=== PATIENT | female | born 1995 | race Caucasian/White ===

== ENCOUNTER 2020-01-07 11:09 | Emergency (ER) | payer OTHER ==
[2020-01-07 11:19] VITALS: BP 112/71; PULSE 101; TEMP 98.2; BMI 21.9
--- NOTE | 2020-01-07 12:10 | PDOC ---
History of Present Illness - General Chief Complaint: Respiratory Stated Complaint: Cold Symptoms Time Seen by Provider: 01/07/20 11:32 History Source: Patient - History of Present Illness Timing/Duration: reports: other Past History - Past Medical History Allergies/Adverse Reactions: Allergies Allergy/AdvReac Type Severity Reaction Status Date / Time No Known Allergies Allergy Verified 01/07/20 11:19 Home Medications: Ambulatory Orders NK [No Known Home Medication] 01/07/20 COPD: No - Psycho Social/Smoking Cessation Hx Smoking History: Never smoked Have you smoked in the past 12 months: No Hx Alcohol Use: No Drug/Substance Use Hx: No Substance Use Type: None Review of Systems - Review of Systems Constitutional: Yes: Fever HEENTM: No: Ear Pain, Throat Pain Respiratory: Yes: Cough. No: Shortness of Breath *Physical Exam - Vital Signs Last Vital Signs Temp Pulse Resp BP Pulse Ox 98.2 F 101 H 16 112/71 99 01/07/20 11:18 01/07/20 11:18 01/07/20 11:18 01/07/20 11:18 01/07/20 11:18 - Physical Exam General Appearance: Yes: Appropriately Dressed. No: Apparent Distress HEENT: positive: Normal ENT Inspection, Normal Voice, TMs Normal, Pharynx Normal. negative: Scleral Icterus (R), Scleral Icterus (L) Neck: positive: Supple. negative: Lymphadenopathy (R), Lymphadenopathy (L) Respiratory/Chest: positive: Lungs Clear, Normal Breath Sounds. negative: Respiratory Distress Cardiovascular: positive: Regular Rate, S1, S2 Integumentary: positive: Dry, Warm Neurologic: positive: Fully Oriented, Alert, Normal Mood/Affect Medical Decision Making - Medical Decision Making 01/07/20 12:08 24-year-old female here with body aches, malaise, cough and subj fever x 3-4 days. Taking [id number] medication with some relief. Child with similar symptoms. Well-appearing and stable with normal exam. Most likely viral illness, flu possible but outside the window for Tamiflu. DC with supportive treatment 01/07/20 12:09 Discharge - Discharge Information Problems reviewed: Yes Clinical Impression/Diagnosis: Viral syndrome Condition: Good Disposition: HOME - Follow up/Referral - Patient Discharge Instructions Patient Printed Discharge Instructions: DI for Viral Syndrome - Post Discharge Activity Work/Back to School Note: Back to Work
== END 2020-01-07 12:22 | disposition home or self-care (01) ==
LOC: JERFT 11:09
DX: B34.9 Viral infection, unspecified (principal)
CPT/HCPCS: 99282-25